=== PATIENT | female | born 1970 | race Caucasian/White ===

== ENCOUNTER 2019-03-19 21:30 | Emergency (ER) | payer OTHER ==
[~2019-03-19] VITALS: Ht 175.3 cm; Wt 90.7 kg
[~2019-03-19 21:30] MED LIST: ACIPHEX 20 MG T20 MG PO; NOHOMEMEDICATIONS; TESSALON PERLE100 MG PO; VENTOLIN HFA 1818 GM INH; ZPAK PO
[2019-03-19] MEDS ORDERED: FLONASE 0.05%50 MCG NARES (21:38)
[2019-03-19] MEDS ORDERED: SINGULAIR 10 MG10 M1 PO (21:38)
[2019-03-19] MEDS ORDERED: ZYRTEC10 M2 PO (21:39)
[2019-03-19] MEDS ORDERED: TOPROL XL25 MG PO (21:39)
[2019-03-19] MEDS ORDERED: ALBUTEROL2.5 MG/31 INH (23:13)
[2019-03-19] MEDS ORDERED: PROAIR HFA8.5 GM INH (23:13)
[2019-03-19] MEDS ORDERED: PREDNISONE50 MG PO (23:13)
[2019-03-19 23:24] VITALS: BP 114/78
== END 2019-03-19 23:25 | disposition home or self-care (01) ==
LOC: M.ERS 21:30
DX: J45.909 Unspecified asthma, uncomplicated (principal); Z88.1 Allergy status to other antibiotic agents; Z91.040 Latex allergy status; Z88.5 Allergy status to narcotic agent; Z88.8 Allergy status to other drugs, medicaments and biological substances; Z90.710 Acquired absence of both cervix and uterus

== ENCOUNTER 2020-08-01 11:41 | Emergency (ER) | payer OTHER ==
[~2020-08-01] VITALS: Ht 177.8 cm; Wt 90.7 kg
[~2020-08-01 11:41] MED LIST changes: +ALBUTEROL2.5 MG/31 INH; +FLONASE 0.05%50 MCG NARES; +PREDNISONE50 MG PO; +PROAIR HFA8.5 GM INH; +SINGULAIR 10 MG10 M1 PO; +TOPROL XL25 MG PO; +ZYRTEC10 M2 PO
[2020-08-01 12:42] LABS: HEMATOCRIT 35.9 % (37.0-47.0); MCH 30.4 pg (26.0-34.0); MCHC 33.4 g/dL (28.0-37.0); MPV 7.7 fl. (7.2-11.1); RBC 3.95 mil/uL (4.20-5.00); WBC 4.7 thou/uL (4.0-11.0)
[2020-08-01 12:49] LABS: CALCIUM 9.3 mg/dL (8.5-10.1); CREATININE 0.8 mg/dL (0.6-1.3); POTASSIUM 3.5 mmol/L (3.5-5.1)
[2020-08-01 13:14] VITALS: BP 132/69
== END 2020-08-01 13:14 | disposition home or self-care (01) ==
LOC: M.ERS 11:41
PROVIDERS: Emergency Medicine Emergency Medical Services
DX: B34.9 Viral infection, unspecified (principal); Z90.710 Acquired absence of both cervix and uterus; Z88.1 Allergy status to other antibiotic agents; Z88.5 Allergy status to narcotic agent; Z88.8 Allergy status to other drugs, medicaments and biological substances; Z91.040 Latex allergy status

== ENCOUNTER 2020-12-30 20:11 | Emergency (ER) | payer OTHER ==
[~2020-12-30] VITALS: Ht 177.8 cm; Wt 88.5 kg
[2020-12-30] MEDS ORDERED: CEFDINIR300 MG PO (22:17)
[2020-12-30 23:25] VITALS: BP 119/68
== END 2020-12-30 23:25 | disposition home or self-care (01) ==
LOC: M.ERS 20:11
DX: H66.92 Otitis media, unspecified, left ear (principal); Z88.6 Allergy status to analgesic agent; Z88.1 Allergy status to other antibiotic agents; Z91.040 Latex allergy status; Z79.899 Other long term (current) drug therapy; Z90.710 Acquired absence of both cervix and uterus

== ENCOUNTER 2021-07-22 13:07 | Emergency (ER) | payer OTHER ==
[~2021-07-22] VITALS: Ht 177.8 cm; Wt 95.3 kg
[~2021-07-22 13:07] MED LIST changes: +CEFDINIR300 MG PO
[2021-07-22] MEDS ORDERED: ZPAK PO (14:02)
[2021-07-22 14:22] VITALS: BP 119/78
== END 2021-07-22 14:23 | disposition home or self-care (01) ==
LOC: M.ERS 13:07
DX: H66.93 Otitis media, unspecified, bilateral (principal); Z90.710 Acquired absence of both cervix and uterus; Z79.899 Other long term (current) drug therapy; Z88.8 Allergy status to other drugs, medicaments and biological substances; Z88.1 Allergy status to other antibiotic agents; Z88.5 Allergy status to narcotic agent; Z88.6 Allergy status to analgesic agent; Z91.040 Latex allergy status